=== PATIENT | female | born 1995 | race Caucasian/White ===

== ENCOUNTER 2020-09-12 21:39 | Emergency (ER) | payer MEDICAID, OTHER ==
[~2020-09-12] VITALS: Ht 170.2 cm; Wt 74.8 kg
[2020-09-12 21:52] VITALS: BP 128/82
[2020-09-13 00:09] LABS: Urine Bacteria NONE SEEN /hpf (None Seen); Urine Blood 1+ /uL (Negative); Urine Mucus FEW (None Seen); Urine Specific Gravity 1.013 (1.001-1.035); Urine WBC 7 /hpf (0 - 5)
== END 2020-09-13 01:40 | disposition home or self-care (01) ==
LOC: ER 21:44
DX: B37.3 Candidiasis of vulva and vagina (principal); L29.2 Pruritus vulvae; Z88.5 Allergy status to narcotic agent
CPT/HCPCS: 81001

== ENCOUNTER 2020-11-09 20:27 | Emergency (ER) | payer MEDICAID ==
[~2020-11-09] VITALS: Ht 170.2 cm; Wt 74.8 kg
[2020-11-09 23:23] VITALS: BP 141/88
== END 2020-11-10 01:10 | disposition home or self-care (01) ==
LOC: ER 20:27
DX: S62.637A Displaced fracture of distal phalanx of left little finger, initial encounter for closed fracture (principal); Z88.5 Allergy status to narcotic agent; W23.0XXA Caught, crushed, jammed, or pinched between moving objects, initial encounter; Y93.89 Activity, other specified; Y92.89 Other specified places as the place of occurrence of the external cause; Y99.8 Other external cause status
CPT/HCPCS: 73140

== ENCOUNTER 2021-09-14 00:58 | Emergency (ER) | payer MEDICAID ==
[~2021-09-14] VITALS: Ht 170.2 cm; Wt 88.0 kg
[2021-09-14 01:22] VITALS: BP 123/90
[2021-09-14 03:20] LABS: Urine Bacteria FEW /hpf (None Seen); Urine Blood Negative /uL (Negative); Urine Mucus FEW (None Seen); Urine Specific Gravity 1.022 (1.001-1.035); Urine WBC 2 /hpf (0 - 5)
[2021-09-14 03:46] LABS: Basophils # (auto) 0.1 10 ^3/uL (0-0.2); Basophils % (auto) 0.7 % (0.0-2.0); Eosinophils # (auto) 0.1 10 ^3/uL (0-0.8); Eosinophils % (auto) 0.6 % (0.0-7.0); Hematocrit 42.3 % (36.0-46.0); Hemoglobin 13.9 g/dL (12.2-16.2); Lymphocytes # (auto) 1.9 10 ^3/uL (0.4-5.4); Lymphocytes % (auto) 20.4 % (10.0-50.0); Mean Corpuscular Hemoglobin 28.4 pg (28.0-32.0); Mean Corpuscular Volume 86.3 fL (80.0-100.0); Monocytes # (auto) 0.5 10 ^3/uL (0-1.3); Monocytes % (auto) 5.6 % (0.0-12.0); Neutrophils # (auto) 6.8 10 ^3/uL (1.6-8.6); Neutrophils % (auto) 72.7 % (37.0-80.0); Nucleated Red Blood Cells % 0.1 %; Red Cell Distribution Width 13.8 % (11.8-14.3); White Blood Cell 9.3 10^3/uL (4.4-10.8)
[2021-09-14 04:04] LABS: Albumin 3.4 g/dL (3.4-5.0); Calcium 8.9 mg/dL (8.5-10.1); Potassium 3.8 mmol/L (3.5-5.1)
[2021-09-14 04:06] LABS: BUN/Creatinine Ratio 11.5
[2021-09-14 04:09] LABS: Bilirubin, Total 0.2 mg/dL (0.2-1.0); Total Protein 7.7 g/dL (6.4-8.2)
[2021-09-14] MEDS ORDERED: CYCL-837 PO (05:42)
== END 2021-09-14 05:48 | disposition home or self-care (01) ==
LOC: ER 00:58
DX: G44.209 Tension-type headache, unspecified, not intractable (principal); Z88.5 Allergy status to narcotic agent
CPT/HCPCS: 36415; 70450; 80053; 81001; 84484; 85025

== ENCOUNTER 2022-11-25 00:15 | Emergency (ER) | payer MEDICAID ==
[~2022-11-25] VITALS: Ht 170.2 cm; Wt 93.6 kg
[~2022-11-25 00:15] MED LIST: CYCL-837 PO
[2022-11-25 00:20] VITALS: BP 117/87; PULSE 104; RESP 14; TEMP 98.4
[2022-11-25] MEDS ORDERED: AMOX875T4 PO (02:27)
[2022-11-25] MEDS ORDERED: ACET500T58 PO (02:27)
[2022-11-25 02:34] VITALS: O2SAT 96
[2022-11-25] MEDS ORDERED: ACETAMINOPHEN 325 MG TAB PO ONE (02:45)
== END 2022-11-25 03:05 | disposition home or self-care (01) ==
LOC: ER 00:20
DX: L60.0 Ingrowing nail (principal); F17.210 Nicotine dependence, cigarettes, uncomplicated; Z88.8 Allergy status to other drugs, medicaments and biological substances; Z79.1 Long term (current) use of non-steroidal anti-inflammatories (NSAID); Z79.899 Other long term (current) drug therapy